=== PATIENT | male | born 2000 | race Caucasian/White ===

== ENCOUNTER 2020-10-16 10:59 | Emergency (ER) | payer SELFPAY ==
[~2020-10-16 10:59] MED LIST: Iopamidol-370 76% 500 ML 1 ML ONE
[2020-10-16] MEDS ORDERED: diphenhydrAMINE 50 MG/ML VIAL ONE (11:28)
[2020-10-16] MEDS ORDERED: Metoclopramide HCl 10 MG/2 ML VIAL ONE (11:28)
[2020-10-16 12:18] LABS: #Monocytes 0.4 thou/uL (0.11-0.59); #Neutrophils 10.8 thou/uL (1.40-6.50); %Basophils 0.1 % (0.0-1.0); %Eosinophils 0.1 % (0.0-10.0); %Lymphocytes 8.2 % (21.0-51.0); %Monocytes 3.5 % (0.0-10.0); %Neutrophils 88.1 % (42.0-75.0); Hemoglobin 14.5 g/dL (14.0-18.0); Mean Corpuscular HGB CONC 34.5 g/dL (32.0-36.0); Mean Corpuscular Hemoglobin 31.8 pg (27.0-31.0); Mean Corpuscular Volume 92.2 fL (78.0-98.0); Mean Platelet Volume 7.6 fL (7.4-10.4); Platelet Count 258 thou/uL (130-400); RBC Distribution Width 11.3 % (11.5-14.5); Red Blood Cell (RBC) Count 4.55 mill/uL (4.70-6.10); White Blood Cell (WBC) Count 12.3 thou/uL (4.8-10.8)
[2020-10-16 12:38] LABS: ALT (SGPT) 20 U/L (8-55); AST (SGOT) 16 U/L (5-34); Albumin 5.1 g/dL (3.5-5.0); Alkaline Phosphatase 54 U/L (40-110); Anion Gap 17 mmol/L (10-20); BUN (Urea Nitrogen) 16 mg/dL (8.9-20.6); Bilirubin, Total 0.5 mg/dL (0.2-1.2); Calc. Creatinine Clearance 0 mL/min (70-130); Calcium 9.3 mg/dL (7.8-10.44); Carbon Dioxide 24 mmol/L (22-29); Chloride 104 mmol/L (98-107); Globulin 2.8 g/dL (2.4-3.5); Glucose 119 mg/dL (70-105); Potassium 3.7 mmol/L (3.5-5.1); Protein, Total 7.9 g/dL (6.0-8.3); Sodium 141 mmol/L (136-145)
[2020-10-16] MEDS ORDERED: Magnesium 2 GM/50 ML BAG (IN WATER) ONE (13:35)
[2020-10-16] MEDS ORDERED: Ketorolac Tromethamine 30 MG/ML VIAL ONE (14:24)
[2020-10-16] MEDS ORDERED: Ondansetron PF 4 MG/2 ML Vial ONE (14:35)
[2020-10-16] MEDS ORDERED: methylPREDNISolone Sod Succ/PF 125 MG/2 ML VIAL ONE (14:44)
== END 2020-10-16 16:05 | disposition home or self-care (01) ==
LOC: ERS 10:59
DX: R51.9 Headache, unspecified (principal)
CPT/HCPCS: 70450; 70481; 80053; 85025; 85652; 86140; 96365; 96367; 96375; J1200; J1885; J2405; J2765; J2930; J3475; Q9967